=== PATIENT | male | born 2005 | race Two or more races ===

== ENCOUNTER 2024-03-11 00:37 | Emergency (ER) | payer MEDICAID, SELFPAY ==
--- NOTE | 2024-03-11 00:41 | EDNOTE_ITS ---
ED Abdominal Pain RME/HPI General Chief Complaint: Abdominal Pain Stated complaint: ABD PAIN /VOMITING Time seen by provider: 03/11/24 00:40 Arrival date/time: 03/11/24 00:37 RME / HPI RME / HPI narrative: This section includes all my notes and documentations, including HPI, PE, and ED course. Constantine Gonzalez MD HPI: 18-year-old male here with about a week history of worsening cough, productive cough, purulent sputum, and dyspnea. In the past few days, he reports fever and chills and bodyaches and malaise and abdominal pain and vomiting. No other complaints. ROS: All negative except as documented in HPI. Physical Exam: General: Alert and oriented. Hacking cough noted. Eyes: Conjunctivae and lids clear. ENT: No nasal congestion. Pharynx normal. TM normal bilaterally. Neck: Supple. Heart: RRR. Lungs: No respiratory distress. Mildly decreased air movement with wheezing and rales. Abdomen: Soft equivocal mild tenderness, difficult to localize. Legs: No clubbing, cyanosis, edema. Skin: Warm and dry. Neuro: Alert and oriented X 3. I reviewed all diagnostic test results. My interpretation of the chest x-ray is LLL infiltrates. My review of the abdominal CT report is LLL consolidation. Blood tests and urine tests remarkable for WBC 14.9. COVID/influenza negative. At this point, diagnoses include pneumonia. Treatment here included Rocephin and Zithromax and Solu-Medrol and DuoNeb. Significant improvement noted. Recommended a trial of treatment at home. Based on my best medical judgment, made decision no further evaluation or treatment indicated at this time. Patient understands and agrees to the discharge instructions customized and printed, see below. Discharge instructions from Dr. Gonzalez: --After extensive evaluation, you have severe pneumonia. --No physical exertion for 3 days to help rest the lungs. ?-No smoking or exposure to smoking or pets or dust or cold or humidity. --Zithromax and cefdinir to kill the germs causing the pneumonia. --Prednisone to help decrease the swelling in the airways. --Albuterol 2 puffs every 4-6 hours for 24 hours to help keep the airways open. Then as needed for cough or shortness of breath. --Tylenol 1000 mg alternating with ibuprofen 800 mg every 4 hours today and tomorrow scheduled. Then as needed for fever/pain. --For good hydration, increase oral fluid and maintain clear urine. If dark or yellow, increase oral fluid. Your body needs extra fluid when you are sick. Zofran for nausea/vomiting. --See a private doctor on 03/14/2024 for recheck. Ask for help until you are completely better. Ask to review all test results and official radiology reports, to make sure you receive all necessary follow-ups and monitoring, including final urine culture results from today. --Seek immediate medical care with worsening or with any concerns. Constantine Gonzalez MD Related Data Previous Rx's ?Medication ?Instructions ?Recorded albuterol sulfate 90 mcg/actuation 2 inh inhalation QID PRN shortness 03/11/24 aerosol inhaler of breath or wheezing #8.5 grams azithromycin 500 mg tablet 500 mg PO QDAY 3 days #3 tabs 03/11/24 (Zithromax TRI-LEON) cefdinir 300 mg capsule 300 mg PO BID #14 caps 03/11/24 ondansetron 4 mg disintegrating 4 mg PO TID PRN nausea and 03/11/24 tablet vomiting 5 days #10 tabs prednisone 20 mg tablet 40 mg PO DAILY 3 days #6 tabs 03/11/24 Allergies Allergy/AdvReac Type Severity Reaction Status Date / Time No Known Allergies Allergy Verified 03/11/24 00:39 Review of Systems Review of Systems Systems Reviewed: All systems reviewed, normal except as documented Past Medical History Social History SMOKING STATUS: Never smoker ED Exam Narrative Physical exam: As noted in HPI. Course Course Course Narrative: CXR is ordered for determining the etiology of shortness of breath. Quality Measures none Orders Category Date Time Status Bedside COVID-19 Antigen Test NOW Care 03/11/24 00:48 Active Bedside Influenza A&B Antigen Test NOW Care 03/11/24 00:[address] Screening NOW Care 03/11/24 00:49 Active Saline [Insert IV] NOW Care 03/11/24 00:[address] abdomen pelvis wo con Stat Exams 03/11/24 01:22 Taken XR chest 1V portable Stat Exams 03/11/24 03:03 Taken Amylase Stat Lab 03/11/24 01:37 Completed CBC Stat Lab 03/11/24 01:37 Completed CMP [Comprehensive Metabolic Panel] Stat Lab 03/11/24 01:37 Completed Lipase Stat Lab 03/11/24 01:37 Completed Magnesium Stat Lab 03/11/24 01:37 Completed UA, C/S IF [Urinalysis, C/S if Indicated] Stat Lab 03/11/24 01:15 Completed Urine Culture Stat Lab 03/11/24 03:27 Ordered ACETAMINOPHEN w/COD 300-30 [Tylenol w/Cod #3] Med 03/11/24 03:25 Discontinued 2 tab PO X1 ONE Albuterol/Ipratr Rt Giovanna [Duoneb Rt Giovanna] Med 03/11/24 03:25 Discontinued 3 ml INH X1 ONE Azithromycin Po [Zithromax PO] Med 03/11/24 03:11 Discontinued 500 mg PO X1 ONE Ketorolac Inj [Toradol Inj] Med 03/11/24 00:48 Discontinued 30 mg IVP X1 ONE MethylPREDNISolone.* [SoluMEDROL Inj] Med 03/11/24 03:25 Discontinued 125 mg IVP X1 ONE Ondansetron Inj [Zofran Inj] Med 03/11/24 00:48 Discontinued 4 mg IV X1 ONE Sodium Chloride 0.9% 1000 ml [Ns] 1,000 ml Med 03/11/24 03:25 Discontinued IV 999 mls/hr cefTRIAXone/D5w 1gm IV premix [Rocephin/D5w 1gm IV Med 03/11/24 03:11 Discontinued premix] 50 ml IV X1 Vital Signs Vital signs: Vital Signs Temperature 101.6 F H 03/11/24 00:45 Pulse Rate 100 03/11/24 00:45 Respiratory Rate 18 03/11/24 00:45 Blood Pressure 148/95 H 03/11/24 00:45 Pulse Oximetry (%) 95 03/11/24 00:45 Oxygen Delivery Method Room Air 03/11/24 00:45 Abdominal Pain MDM Patient data External records reviewed:: [facility] previous records (Per chart review, patient has no previous ED visits or admissions to this facility.) Clinical information provided by:: patient and parent Social determinants that could affect healthcare access:: none Patient has the following chronic illnesses:: none How is presenting disease/condition affected by chronic disease/condition?: no chronic disease Evaluation data The following diagnostics were reviewed and interpreted by me:: lab results and radiology exam(s) Lab and/or radiology exams considered but not ordered:: none Interpretation Summary: Pneumonia Medications / Prescriptions Medications or Prescriptions considered but not ordered:: none Medication administrations:: Medication Administration History Discontinued Medications Acetaminophen/Codeine Phosphate (Acetaminophen W/Cod 300-30 Tablet) 2 tab PO X1 ONE Stop: 03/11/24 03:26 Last Admin: 03/11/24 03:47 Dose: 2 tab Documented By: JOSE JUAN Albuterol/Ipratropium (Albuterol/Ipratropium (Duoneb) Rt Giovanna 3 Ml Nebu) 3 ml INH X1 ONE Stop: 03/11/24 03:26 Last Admin: 03/11/24 03:50 Dose: 3 ml Documented By: SHARLENE Azithromycin (Azithromycin 250 Mg Tablet) 500 mg PO X1 ONE Stop: 03/11/24 03:12 Last Admin: 03/11/24 03:41 Dose: 500 mg Documented By: JOSE JUAN Ceftriaxone Sodium/Dextrose (Rocephin/D5w 1gm Iv Premix) 50 mls @ 100 mls/hr IV X1 ONE Stop: 03/11/24 03:40 Last Admin: 03/11/24 03:42 Dose: 100 mls/hr Documented By: JOSE JUAN Sodium Chloride (Ns) 1,000 mls @ 999 mls/hr IV .Q1H1M ONE Stop: 03/11/24 04:25 Last Admin: 03/11/24 03:45 Dose: 999 mls/hr Documented By: JOSE JUAN Ketorolac Tromethamine (Ketorolac Inj 30 Mg/Ml Vial) 30 mg IVP X1 ONE Stop: 03/11/24 00:49 Last Admin: 03/11/24 02:19 Dose: 30 mg Documented By: ROBINSON Methylprednisolone Sodium Succinate (Methylprednisolone Sod Succ 62.5 Mg/Ml 2ml Vial) 125 mg IVP X1 ONE Stop: 03/11/24 03:26 Last Admin: 03/11/24 03:47 Dose: 125 mg Documented By: JOSE JUAN Ondansetron HCl (Ondansetron Inj 2 Mg/Ml Inj 2 Ml) 4 mg IV X1 ONE; Protocol Stop: 03/11/24 00:49 Last Admin: 03/11/24 02:19 Dose: 4 mg Documented By: ROBINSON See chart Consultations Consultation(s) initiated? (list below): No Diagnosis Differential diagnosis abdominal pain: acute appendicitis, calculus of kidney, constipation, diverticulitis, gastroenteritis, pancreatitis, small bowel obstruction and other (pneumonia, gastritis) Most likely diagnosis given after review of the tests above:: Pneumonia Admission Indicated Admission indicated?: not indicated Explain why admission is indicated or not indicated:: Admission criteria not met Admission Request Was there a request for admission?: No Disposition Plan Disposition Plan: Discharge Discharge Attestation Discharge Attestation: The patient and all family members were given an opportunity to ask questions and understood the discharge instructions. Discharge instructions specifically effects, indications for sooner follow up or return to the emergency department, and the expected course of current diagnosis. Patient condition: Stable Discharge Plan Plan Patient Disposition: HOME (Self Care) Prescriptions/Referrals Prescriptions/Med Rec: New prednisone 20 mg tablet 40 mg PO DAILY 3 Days Qty: 6 0RF Taper: Prednisone Taper 20 mg DAILY for 2 Days and 0 Hour 10 mg DAILY for 2 Days and 0 Hour 5 mg DAILY for 7 Days and 0 Hour albuterol sulfate 90 mcg/actuation HFA aerosol inhaler 2 inh inhalation QID PRN (Reason: shortness of breath or wheezing) Qty: 8.5 0RF ondansetron 4 mg tablet,disintegrating 4 mg PO TID PRN (Reason: nausea and vomiting) 5 Days Qty: 10 0RF cefdinir 300 mg capsule 300 mg PO BID Qty: 14 0RF azithromycin [Zithromax TRI-LEON] 500 mg tablet 500 mg PO QDAY 3 Days Qty: 3 0RF Referrals: Temporary Provider,ED [Physician] - In 1 week Problem List Clinical Impression: Pneumonia Patient/Caregiver Discharge Instructions Discharge Activity: activity as tolerated Education Materials: ED Pneumonia (Adult) Additional Instructions: Discharge instructions from Dr. Gonzalez: --After extensive evaluation, you have severe pneumonia. --No physical exertion for 3 days to help rest the lungs. ?-No smoking or exposure to smoking or pets or dust or cold or humidity. --Zithromax and cefdinir to kill the germs causing the pneumonia. --Prednisone to help decrease the swelling in the airways. --Albuterol 2 puffs every 4-6 hours for 24 hours to help keep the airways open. Then as needed for cough or shortness of breath. --Tylenol 1000 mg alternating with ibuprofen 800 mg every 4 hours today and tomorrow scheduled. Then as needed for fever/pain. --For good hydration, increase oral fluid and maintain clear urine. If dark or yellow, increase oral fluid. Your body needs extra fluid when you are sick. Zofran for nausea/vomiting. --See a private doctor on 03/14/2024 for recheck. Ask for help until you are completely better. Ask to review all test results and official radiology reports, to make sure you receive all necessary follow-ups and monitoring, including final urine culture results from today. --Seek immediate medical care with worsening or with any concerns. Print Language: Kittitian Stand Alone Forms: Nicki Award Info., Patient Portal Info Letter
[2024-03-11 00:45] VITALS: BP 148/95; PULSE 100; RESP 18; TEMP 38.7; O2SAT 95; BMI 37.5
--- NOTE | 2024-03-11 01:22 | XR_ITS ---
Examination: CT abdomen and pelvis without contrast. Coronal 3-D reconstructions. Sagittal 2-D reconstructions. Date and time of exam:March 11, 2024 0144 hrs. Indications: Abdominal pain and vomiting today CTDI: vol (mGy): 13.91 DLP: (mGycm): 935 Technique: Axial images of the abdomen have been obtained, 3 mm slice thickness Intravenous contrast material has not been administered. Low dose protocols were performed. One or more of the following dose reduction techniques were used; automated exposure control, adjustment of the mA and/or KV according to patient size, use of iterative reconstruction technique. Findings: Prominent opacity in the lingular segment left upper lobe and left base consistent with pneumonia Diffuse fatty infiltration throughout the liver No gallstones Spleen not enlarged No pancreatic or adrenal mass No renal or ureteral calculi, no hydronephrosis Aorta normal size Normal appendix No bowel obstruction or diverticulitis Normal seminal vesicles Normal prostate Urinary bladder wall thickened up to 10 mm Minimal anterolisthesis L5 on S1 Impression: Significant pneumonia lingular segment left upper lobe and left base No renal or ureteral calculi, no hydronephrosis Normal appendix Suspicious for cystitis
[2024-03-11 01:24] LABS: Collection Type, Urine Clean Catch
[2024-03-11 01:36] LABS: Bacteria,Urine Rare; Bilirubin,Urine Negative (Negative); Blood,Urine Negative (Negative); Clarity,Urine Clear (Clear/Hazy); Color,Urine Yellow (Lt Yel-Yel); Culture Indicated,Urine Not Indicated; Glucose, Urine Negative (Negative); Ketones,Urine 4+ (Negative); Leukocyte Esterase,Urine Negative (Negative); Nitrite,Urine Negative (Negative); Protein,Urine 1+ (Neg - Trace); RBC,Urine 5 /hpf (0-3); Specific Gravity,Urine 1.037 (1.001-1.035); Squamous Epithelial Cell,Urine < 1 /hpf (0-5); WBC,Urine 4 /hpf (0-5)
[2024-03-11 01:48] LABS: Basophils % (Auto) 0 % (0-2.5); Eosinophils % (Auto) 0 % (0-10); Hematocrit 44.4 % (41.0-53.0); Hemoglobin 15.2 g/dL (13.5-16.0); Immature Granulocytes % (Auto) 1 % (0-0); Immature Granulocytes Auto 0.07 Thou/mm3 (0.00-0.00); Lymphocytes # (Auto) 1.2 Thou/mm3 (1.0-5.0); Lymphocytes % (Auto) 8 % (10-50); Mean Corpuscular HGB Conc 34.2 g/dl (31.0-37.0); Mean Corpuscular Hemoglobin 27.1 pg (25.0-35.0); Mean Corpuscular Volume 79 fL (80-100); Monocytes # (Auto) 1.3 Thou/mm3 (0.0-0.8); Monocytes % (Auto) 9 % (0-12); Neutrophils # (Auto) 12.2 Thou/mm3 (1.8-7.7); Neutrophils % (Auto) 82 % (37-80); Nucleated Red Blood Cell % 0 /100 WBC (0); Platelet Count 216 Thou/mm3 (140-440); RDW Standard Deviation 35.5 fL (35.1-43.9); White Blood Count 14.9 Thou/mm3 (4.5-11.0)
[2024-03-11 02:12] LABS: Alanine Aminotransferase 23 U/L (10-49); Albumin, Serum 5.5 gm/dL (3.5-5.0); Albumin/Globulin Ratio 1.7 (1.2-2.2); Alkaline Phosphatase 81 U/L (46-116); Amylase 81 U/L (30-118); Anion Gap 11 (7-16); Aspartate Amino Transferase 19 U/L (0-34); BUN/Creatinine Ratio 11 Ratio (12-20); Bilirubin,Total 0.7 mg/dL (0.3-1.2); Blood Urea Nitrogen 11 mg/dL (9-23); Calcium 9.9 mg/dL (8.3-10.6); Calcium (Corrected) 9.9 mg/dL (8.5-10.1); Chloride 95 mMol/L (98-107); Estimated Creatinine Clearance 157.9 mL/min (>60); Globulin 3.2 gm/dL (2.3-3.5); Glucose 108 mg/dL (74-106); Lipase 62 U/L (12-53); Magnesium 2.1 mg/dL (1.6-2.6); Osmolality,Calculated 261 (275-295); Potassium 4.2 mMol/L (3.4-5.1); Sodium 130 mMol/L (136-145); Total Protein 8.7 gm/dL (5.7-8.2); eGFR > 60 See Note
[2024-03-11 02:19] VITALS: BP 147/94; PULSE 93; RESP 18; TEMP 38.7; O2SAT 99
[2024-03-11] MEDS: KETOROLAC INJ 30 MG/ML VIAL IVP (02:19)
[2024-03-11] MEDS: ONDANSETRON INJ 2 MG/ML INJ 2 ML 4 MG IV (02:19)
--- NOTE | 2024-03-11 02:33 | PRELIM_ITS ---
CT scan of the abdomen and pelvis without intravenous contrast (axial sections with sagittal and susanne nal reformats) March 11, 2024 at 0144 hours Clinical History: Abdominal pain and vomiting. Compari son: No prior study is available for comparison. Findings:The liver, gallbladder, pancreas, spleen, k idneys and adrenals are unremarkable, on this noncontrast study.No evidence of bowel obstruction. The appendix is within normal limits (axial images [id number]). There is no mesenteric or retroperitone al adenopathy.The urinary bladder is partially distended and shows mild wall thickening; possibility of cystitis cannot be excluded. There is no free fluid or free air.The osseous structures are unremar kable.There is patchy consolidation in the lingula. There are patchy and nodular opacities in the lef t lower lobe.Please note that evaluation of soft tissue/vascular structures and bowel loops is limite d due to absence of IV and oral contrast. Impression:1. No evidence of acute pancreatitis. 2. Partial ly distended urinary bladder with mild wall thickening; possibility of cystitis cannot be excluded. 3 . Patchy consolidation in the lingula and patchy nodular opacities in the left lower lobe, suggestive of pneumonia.4. Other findings as described above. Suggest clinical correlation and follow up accord ingly. Report Electronically Signed By: Adrien Chapa 03/11/2024 2:33:05 AM [EST]
--- NOTE | 2024-03-11 03:03 | XR_ITS ---
Examination: AP chest single view Technique one AP portable upright chest single view Exam date and time: March 11, 2024 0309 hrs. Indications: Shortness of breath today. Findings: Significant opacity in the lingular segment left upper lobe Normal heart size Right lung clear Impression: Significant pneumonia lingular segment left upper lobe
[2024-03-11] MEDS: AZITHROMYCIN 250 MG TABLET 500 MG PO (03:41)
[2024-03-11] MEDS: cefTRIAXone/D5w 1gm IV premix 50 ML IV (03:42)
[2024-03-11] MEDS: SODIUM CHLORIDE 0.9% 1000 ML 1,000 ML 999 ML IV (03:45)
[2024-03-11] MEDS: MethylPREDNISolone SOD SUCC 62.5 MG/ML 2ML VIAL 125 MG IVP (03:47)
[2024-03-11] MEDS: ACETAMINOPHEN w/COD 300-30 TABLET 2 TAB PO (03:47)
[2024-03-11 03:49] VITALS: PULSE 82; RESP 18; O2SAT 98
[2024-03-11] MEDS: ALBUTEROL/IPRATROPIUM (Duoneb) RT SOL 3 ML NEBU INH (03:50)
[2024-03-11 04:40] VITALS: BP 153/85; PULSE 98; RESP 19; TEMP 37.5; O2SAT 98
[2024-03-11 05:37] VITALS: BP 140/67; PULSE 97; RESP 19; TEMP 37.3; O2SAT 95
== END 2024-03-11 05:38 | disposition home or self-care (01) ==
PROVIDERS: Emergency Provider Emergency Medicine
DX: J18.9 Pneumonia, unspecified organism (principal)
CPT/HCPCS: 36415; 71045; 74176; 80053; 81001; 82150; 83690; 83735; 85025; 87086; 87400; 87811; 94640; 96365; 96375; 99284; A9270; J0696; J1885; J2405; J2919; J7030